=== PATIENT | male | born 1990 | race Caucasian/White ===

== ENCOUNTER 2019-01-12 16:40 | Emergency (ER) | payer SELFPAY ==
[~2019-01-12] VITALS: Ht 180.3 cm; Wt 91.0 kg
[2019-01-12 16:55] VITALS: BP 128/68
== END 2019-01-12 17:29 | disposition home or self-care (01) ==
LOC: ER 16:40
DX: S00.03XA Contusion of scalp, initial encounter (principal); W18.39XA Other fall on same level, initial encounter; Y93.89 Activity, other specified; Y92.69 Other specified industrial and construction area as the place of occurrence of the external cause; Y99.8 Other external cause status
CPT/HCPCS: 99281